=== PATIENT | male | born 1965 | race Caucasian/White ===

== ENCOUNTER 2019-02-02 07:58 | Inpatient (IN) | payer OTHER ==
[~2019-02-02] VITALS: Ht 172.7 cm; Wt 81.6 kg
[2019-02-02 08:06] VITALS: BP 97/64
[2019-02-02 08:29] LABS: HEMATOCRIT 37.2 % (42.0-52.0); HEMOGLOBIN 12.4 gm/dL (14.0-18.0); MCH 30.7 pg (26.0-34.0); MCHC 33.3 g/dL (28.0-37.0); MCV 92.3 fL (80.0-100.0); PLATELET COUNT 582 thou/uL (150-400); RBC 4.03 mil/uL (4.50-6.00); RDW 13.8 % (10.5-14.5); WBC 23.3 thou/uL (4.0-11.0)
[2019-02-02 08:37] LABS: CALCIUM 10.1 mg/dL (8.5-10.1); CREATININE 2.5 mg/dL (0.7-1.3); POTASSIUM 4.7 mmol/L (3.5-5.1)
[2019-02-02 09:14] LABS: ABSOLUTE NEUTROPHILS 19.1 thou/uL (1.4-8.2); METAMYELOCYTES 2 %
[2019-02-02 09:15] LABS: ANISOCYTOSIS SLIGHT
[2019-02-02 10:59] LABS: URINE BILIRUBIN NEGATIVE (Negative); URINE BLOOD NEGATIVE (Negative); URINE CLARITY CLEAR; URINE COLOR YELLOW; URINE GLUCOSE-RANDOM* NEGATIVE (Negative); URINE KETONES NEGATIVE (Negative); URINE LEUKOCYTES-REFLEX NEGATIVE (Negative); URINE NITRITE-REFLEX NEGATIVE (Negative); URINE PROTEIN (DIPSTICK) NEGATIVE (Negative); URINE SPECIFIC GRAVITY <= 1.005 (1.005-1.035); URINE UROBILINOGEN 0.2 E.U./dl (0.2-1.0)
[2019-02-02] MEDS ORDERED: LASIX 40 MG TAB40 M2 PO (11:26)
[2019-02-02] MEDS ORDERED: LISINOPRIL40 MG PO (11:27)
[2019-02-02] MEDS ORDERED: XANAX1 MG PO (11:27)
[2019-02-02] MEDS ORDERED: PREDNISONE 20 M20 MG PO (11:27)
[2019-02-02 12:12] VITALS: BP 108/84
[2019-02-02 14:34] VITALS: BP 100/62
--- NOTE | 2019-02-02 16:44 | NUR ---
PATIENT ADMITTED TO FROM ER. PATIENT AMBULATED TO THE BED FROM [facility]. PATIENT STEADY ON FEET. PATIENT HAS NS RUNNING IN RIGHT AC. PATIENT COMPLAINING OF FABÁIN. RIB PAIN, PARTIAL RELIEF WITH HYDROCODONE. PATIENT SLEEPING COMFORTABLY. ASSESSMENT CHARTED. MS PATIENT, NOT ON TELE. CONTINUE WITH POC.
--- NOTE | 2019-02-02 17:50 | NUR ---
PATIENT WAS TRANSFERRED TO LATE THIS AFTERNOON FROM THE ER. HE HAS BEEN RESTING COMFORTABLY IN HIS BED WITH THE LIGHTS OFF SLEEPING. HE DID EAT DINNER STATING THAT HE HAD SOMEWHAT OF AN APPETITE. HE STATES THAT THE PAIN MEDICATION HELPED DULL HIS DISCOMFORT IN HIS RIBS FROM COUGHING. PATIENT TO CONTINUE WITH POC.
--- NOTE | 2019-02-02 22:43 | EKG ---
[address] [address] ELECTROCARDIOGRAM REPORT Name: PREM MCKENZIE Room #: 208-P ADM IN ..#: [id number] ������������������ Admission: 02/02/19 ������������������ Attend Phys: Da Ward MD Discharge: ������������������ Date of : 65 Report #: [id number] ����������������������������������������������������������������� [id number] THIS REPORT FOR: //name// [facility] ED Test Date: 2019-02-02 Test Time: 08:34:03 Pat Name: PREM MCKENZIE Department: Room: 208 Gender: M Money Room Supervisor: Khris CHARLES RN : 1965 Requested By: Khalif Nagy Order Number: [id number] MD: Christopher Snow Measurements Intervals [place] Rate: 94 P: 66 RI: 136 QRS: 45 QRSD: 89 T: 40 QT: 329 QTc: 412 Interpretive Statements Sinus rhythm ST elev, probable normal early repol pattern No previous ECG available for comparison Electronically Signed On 02-02-2019 22:42:48 CDT by Christopher Snow [email or web address] ��������������������������������������������� <ELECTRONICALLY SIGNED> ���������������������������������������� By: Christopher Snow MD ��������������������������������������������� 02/02/19 2242 3 3 Christopher Snow MD /POORNIMA
[2019-02-02 23:00] VITALS: BP 96/65
[2019-02-03 01:00] VITALS: BP 86/54
[2019-02-03 04:09] LABS: HEMATOCRIT 32.8 % (42.0-52.0); HEMOGLOBIN 10.7 gm/dL (14.0-18.0); MCH 30.7 pg (26.0-34.0); MCHC 32.5 g/dL (28.0-37.0); MCV 94.5 fL (80.0-100.0); RBC 3.48 mil/uL (4.50-6.00); RDW 14.1 % (10.5-14.5); WBC 18.8 thou/uL (4.0-11.0)
[2019-02-03 04:22] LABS: ALBUMIN 1.8 g/dL (3.4-5.0); CALCIUM 8.4 mg/dL (8.5-10.1); CREATININE 1.8 mg/dL (0.7-1.3); POTASSIUM 4.5 mmol/L (3.5-5.1); TOTAL BILIRUBIN 0.2 mg/dL (<0.1-1.0); TOTAL PROTEIN 5.7 g/dL (6.4-8.2)
[2019-02-03 05:00] VITALS: BP 96/64
[2019-02-03 07:29] VITALS: BP 97/61
--- NOTE | 2019-02-03 10:05 | NUR ---
Assess due to high nutrition screening risk trigger. Admitted with pneumonia, +tobacco use. States has not been feeling well few weeks, not eating as much and wt loss ~ 10 lb from usual. States past day and this am eating much better. On regular diet, able to order own selections. Low nutrition risk
--- NOTE | 2019-02-03 12:27 | HC ---
[facility] [place] [address] CONSULTATION Name: PREM MCKENZIE Room #: 208-P [facility] IN .R.#: [id number] Admission: 02/02/19 ������������������ Attend Phys: Da Ward MD Discharge: ������������������ Date of : 65 Report #: [id number] THIS REPORT FOR: //name// CC: FAM unknown Da Ward DATE OF SERVICE: 02/02/2019 Nephrology Consultation ATTENDING PHYSICIAN: Da Ward MD REASON FOR CONSULTATION: Elevated creatinine. HISTORY OF PRESENT ILLNESS: A 53-year-old patient, 4 years ago developed proteinuria and edema, was seen at [facility], had a renal biopsy showed FSGS. Treated with high dose steroids, tapered down now to 15 mg per day and conservative measures including furosemide and lisinopril. Proteinuria has improved and actually his most recent urine protein creatinine ratio was 0.43 and baseline serum creatinine of 1.3 at [facility]. Over the last couple of weeks, the patient has had progressive upper respiratory symptoms, worsened dramatically this week with severe fatigue, cough, and some hemoptysis. No pleuritic pain and easily short winded. He came to the emergency room today and was found to have a right-sided pneumonia with leukocytosis and was admitted and treated. He also had a CT angiogram of the chest despite a creatinine of 2.5 and volume depletion and low blood pressure. PAST MEDICAL HISTORY: Mostly remarkable for the FSGS. He is a longstanding and ongoing cigarette smoker and has been treated with antihypertensives, mostly for his proteinuria and not for hypertension. HOME MEDICATIONS: Include furosemide 40 mg daily, prednisone 15 mg daily, lisinopril 40 mg daily and Xanax as needed. SOCIAL HISTORY: Positive cigarettes. Occasional alcohol. 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 REVIEW OF SYSTEMS: GENERAL: He has been feeling very poorly. EYES: His vision has been okay. ENT: Hearing okay, swallows okay. No mouth sores. ENDOCRINE: No diabetes or thyroid disease. RESPIRATORY: Somewhat easily short-winded of late. CARDIAC: No chest pain, angina, history of myocardial infarction, arrhythmias or palpitations. [facility] [address] [place] [address] CONSULTATION Name: PREM MCKENZIE Room #: 208-P [facility].#: [id number] Admission: 02/02/19 ������������������ Attend Phys: Da Ward MD Discharge: ������������������ Date of : 65 Report #: [id number] GASTROINTESTINAL: Appetite has been a bit poor, but no nausea, vomiting, diarrhea or bloody stools. GENITOURINARY: No dysuria, hematuria or renal stone disease. NEUROLOGIC: No seizure, syncope or stroke. MUSCULOSKELETAL: He has had generalized weakness, but no arthritis. FAMILY HISTORY: Negative for renal disease, heart disease, diabetes. PHYSICAL EXAMINATION: GENERAL: This is a reasonably well-appearing gentleman, seen in his hospital bed. Blood pressure initially was diminished. He did receive a couple of liters of IV fluid. Blood pressure is low as 90/50, currently 100/60, afebrile. SKIN: Unremarkable. SKELETAL: Well developed, well nourished. HEENT: Extraocular movements are full. No scleral icterus. Hearing and vision intact. Mucous membranes are somewhat dry. NECK: Veins are flat. CHEST: Shows some rhonchi in the right chest. HEART: Regular. ABDOMEN: Soft and nontender. EXTREMITIES: No edema. Peripheral pulses intact. LABORATORY DATA: Creatinine 2.5, BUN 25. Hemoglobin 12.4, white count 23.3, and platelets 582. ASSESSMENT: 1. Acute on chronic kidney injury. The patient has focal segmental glomerulosclerosis, baseline creatinine of 1.3, now an elevated creatinine to 2.5 and he received a radiocontrast dye load. On top of that, he has been given IV fluids. We will continue the IV fluids. Probably, we will increase those little bit and hope that his kidneys weather the storm reasonably well. 2. Pneumonia, being appropriately treated. 3. Focal segmental glomerulosclerosis. His proteinuria is better. I will recheck that and we will hold lisinopril and furosemide. At the current time, we are treating pneumonia. 4. Ongoing cigarette smoking. ��������������������������������������������� <ELECTRONICALLY SIGNED> ���������������������������������������� By: Landon Orantes MD ��������������������������������������������� 02/03/19 1227 [id number] [id number] Landon Orantes MD /nt
--- NOTE | 2019-02-03 16:10 | NUR ---
ASSUMED CARE AT SHIFT CHANGE, ALERT AND ORIENTED X4. C/O DRY COUGH AND PAIN TO FABIÁN RIBS. MEDICATED INDICATED FOR PAIN. PROGRESSING TOWARDS GOALS AND WILL CONTINUE WITH POC.
[2019-02-03 19:57] VITALS: BP 118/74
--- NOTE | 2019-02-04 04:07 | NUR ---
ASSESSMENTS CHARTED. PATIENT HAS BEEN NPO SINCE MIDNIGHT. 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 IS NOT ON TELEMETRY. AT START OF SHIFT PATIENT CALLED OUT 3 TIMES WANTING PAIN MEDS (2 NORCO) WHEN ASKED HIS PAIN LEVEL HE SAID IT WAS A 1 TO 1.5. I EDUCATED HIM OF RELEVANT PAIN MEDS FOR LEVELS OF PAIN. HE WAS NOT HAPPY, BUT REFUSED TYLENOL THAT WAS AVAILABLE.
[2019-02-04 04:11] VITALS: BP 127/73
[2019-02-04 07:58] VITALS: BP 134/74
[2019-02-04 09:16] LABS: CREATININE 1.3 mg/dL (0.7-1.3); PHOSPHORUS 3.6 mg/dL (2.5-4.9); POTASSIUM 4.5 mmol/L (3.5-5.1)
[2019-02-04 11:06] VITALS: BP 119/78
--- NOTE | 2019-02-04 13:15 | NUR ---
PT OFF UNIT FOR BRONCHOSCOPY.
--- NOTE | 2019-02-04 16:15 | NUR ---
PT RETURN FROM BRONCHOSCOPY. BED LOW AND LOCKED, SIDE RAISL UPX3, CALL LIGHTIN REACH. WILL CONTINUE TO ASSESS.
[2019-02-04 20:05] VITALS: BP 125/87
--- NOTE | 2019-02-05 01:44 | NUR ---
ASSESSMENTS CHARTED. PATIENT HAD BRONCOSCOPY TODAY. PATIENT ORIGINALLY REQUESTED PAIN MEDS THEN DECIDED HE DID NOT NEED PAIN MEDS, THAT HE WOULD JUST GO TO SLEEP INSTEAD. DENIED NAUSEA. ON ROOM AIR. PLAN OF CARE IS TO GO HOME IN THE MORNING.
[2019-02-05 04:45] VITALS: BP 130/85
[2019-02-05 04:55] LABS: HEMATOCRIT 31.4 % (42.0-52.0); HEMOGLOBIN 10.4 gm/dL (14.0-18.0); MCH 30.8 pg (26.0-34.0); MCHC 33.2 g/dL (28.0-37.0); MCV 92.8 fL (80.0-100.0); RBC 3.38 mil/uL (4.50-6.00); RDW 13.8 % (10.5-14.5)
[2019-02-05 05:06] LABS: ALBUMIN 1.7 g/dL (3.4-5.0); CALCIUM 8.9 mg/dL (8.5-10.1); CREATININE 1.3 mg/dL (0.7-1.3); PHOSPHORUS 4.2 mg/dL (2.5-4.9); POTASSIUM 4.6 mmol/L (3.5-5.1)
[2019-02-05] MEDS ORDERED: AZITHROMYCIN 2250 MG PO (13:45)
[2019-02-05] MEDS ORDERED: CEFDINIR300 MG PO (13:45)
[2019-02-05] MEDS ORDERED: VENTOLIN HFA 1818 GM INH (13:46)
[2019-02-05] MEDS ORDERED: COZAAR 50 MG TA50 M1 PO (13:48)
[2019-02-05] MEDS ORDERED: CODEINE SULFATE30 MG PO (13:49)
[2019-02-05 15:03] VITALS: BP 130/85
[2019-02-05 17:01] VITALS: BP 147/90
--- NOTE | 2019-02-05 17:32 | NUR ---
ASSUMED CARE AT SHIFT CHANGE, ALERT AND ORIENTED X4. C/O DRY COUGH AND BANDAY NOTIFIED,ORDERED MEDICATION RACHANA AND KASEY REPORTED SOME RELIEVE. DISCHARGE AND MEDICATIONS INSTRUCTION GIVEN. WAITING FOR A RIDE.
--- NOTE | 2019-02-06 16:06 | PATH ---
[facility] [address] [place] [address] PATHOLOGY RPT PROCEDURE Name: PREM MCKENZIE Room #: 208-P DIS IN M.R.#: [id number] ������������������ Admission: 02/02/19 ������������������ Date of : 65 Discharge: 02/05/19 Report #: [id number] Path Case #: [id number] Note [facility] Accession Number: [id number] TESTS RESULT FLAG UNITS REF RANGE LAB Clinician Provided Cytology Information No. of containers..01 Other (Miscellaneous) Source: BAL RUL WASH DIAGNOSIS: BAL RUL WASH NEGATIVE FOR MALIGNANT CELLS. NORMAL BRONCHIAL CELLS AND MACROPHAGES ARE PRESENT. PULMONARY MACROPHAGES (DUST CELLS) ARE PRESENT. Pathologist ICD10: 02 A41.9 Signed out by: 02 Lin Sumner MD, Pathologist NPI- [id number] Performed by: Peña Almanza, Manager Of Business Operations ([facility]) Gross description: 01 10ML, WHITE, CLOUDY /LCS FLAG LEGEND: L-Low Normal,H-High Normal,LL-Alert Low,HH-Alert High <-Panic Low,>-Panic High,A-Abnormal,AA-Critical Abnormal Performed at: [address] [place] [address] Eliseo Lam MD, [address] [address] Lin Sumner MD, Specimen Comment: A courtesy copy of this report has been sent to Specimen Comment: [phone], . Specimen Comment: Report sent to / DR ARORA Performed at: [address], [place], [place] [id number] MD Eliseo Lam MD Phone: [phone]
== END 2019-02-05 17:45 | disposition home or self-care (01) | DRG 871 ==
LOC: ER 07:58 → 2N 10:52 → EROBS 10:52 → 2N 14:25
PROVIDERS: Emergency Medicine; Internal Medicine; Internal Medicine Nephrology; ADMIT Hospitalist
PROC: 0B9C8ZX Drainage of Right Upper Lung Lobe, Via Natural or Artificial Opening Endoscopic, Diagnostic (ICD-10-PCS; principal; 2019-02-04)
DX: A41.9 Sepsis, unspecified organism (principal); N17.0 Acute kidney failure with tubular necrosis; J96.01 Acute respiratory failure with hypoxia; J15.9 Unspecified bacterial pneumonia; E44.1 Mild protein-calorie malnutrition; I95.9 Hypotension, unspecified; I12.9 Hypertensive chronic kidney disease with stage 1 through stage 4 chronic kidney disease, or unspecified chronic kidney disease; N18.9 Chronic kidney disease, unspecified; F17.210 Nicotine dependence, cigarettes, uncomplicated; F19.10 Other psychoactive substance abuse, uncomplicated; D64.9 Anemia, unspecified; Z68.27 Body mass index [BMI] 27.0-27.9, adult; Z79.52 Long term (current) use of systemic steroids
CPT/HCPCS: 10797; 50010; 62110; 62900; 70005